=== PATIENT | male | born 1955 | race Caucasian/White ===

== ENCOUNTER 2017-02-26 03:23 | Emergency (ER) | payer OTHER ==
[2017-02-26] MEDS ORDERED: HYDROmorphone* 1 MG/ML 1 ML SYR IM ONE (03:42)
[2017-02-26] MEDS ORDERED: oxyCODONE/Acetamin 5/325 MG* TAB PO ONE (04:57)
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
[2017-02-26 05:20] VITALS: BP 143/87
== END 2017-02-26 05:20 | disposition home or self-care (01) ==
LOC: ED 03:23
DX: M54.2 Cervicalgia (principal); M25.512 Pain in left shoulder; M25.511 Pain in right shoulder
CPT/HCPCS: 96372; 99281; A9270-GY; J1170

== ENCOUNTER 2017-02-26 10:19 | Emergency (ER) | payer OTHER ==
[2017-02-26] MEDS ORDERED: Ketorolac INJ* 30 MG/ML 1 ML VIAL IV ONE (11:20)
[2017-02-26] MEDS ORDERED: Diazepam SYRINGE* 5 MG/ML SYRINGE IV ONE (11:20)
[2017-02-26] MEDS ORDERED: NS 0.9% 1000 ML* 1,000 ML IV ONE (11:20)
[2017-02-26] MEDS ORDERED: Diazepam TAB(*) 5 MG PO ONE (11:42)
[2017-02-26] MEDS ORDERED: Ketorolac INJ* 60 MG/2 ML VIAL IM ONE (11:43)
[2017-02-26] MEDS ORDERED: HYDROmorphone TAB* 2 MG PO ONE (12:02)
[2017-02-26 12:54] LABS: Hematocrit 44 % (42-52); Hemoglobin 15.5 g/dl (14.0-18.0); Mean Corpuscular HGB Conc 35 g/dl (31-36); Mean Corpuscular Hemoglobin 30 pg (27-31); Mean Corpuscular Volume 86 fL (80-94); Mean Platelet Volume 8 um3 (7.4-10.4); Red Blood Count 5.11 10^6/ul (4.0-5.4); Red Cell Distribution Width 13 % (10.5-15); White Blood Count 8.2 10^3/ul (3.5-10.8)
[2017-02-26 13:10] LABS: Albumin 4.1 g/dL (3.2-5.2); BUN/Creatinine Ratio 16.7 (8-20); C Reactive Protein 4.39 mg/L (< 5.00); Calcium 9.5 mg/dL (8.6-10.3); EGFR African American 94.9 (>60); EGFR Non-African American 73.8 (>60); Globulin 2.9 g/dL (2-4); Potassium 3.2 mmol/L (3.5-5.0)
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
[2017-02-26] MEDS ORDERED: Iohexol 350* (CONTRAST) 500 ML MDV IV ONE (13:30)
--- NOTE | 2017-02-26 15:23 | RAD ---
CPT II: CPT II Codes: 3100F INDICATION: Exacerbation of neck, shoulder and arm pain x2 days. COMPARISON: Most recent comparison imaging includes MRI of the cervical spine dated March 27, 2016 TECHNIQUE: A CT angiogram of the head and neck was performed with 80 cc of Omnipaque 350. Contiguous axial sections were obtained from the thoracic inlet through the [place]. Images were reconstructed in the sagittal, coronal planes and in a 3-D volume rendered format. The distal cervical internal carotid artery diameter is used as the denominater for stenosis measurement. CTA NECK: The common and internal carotid arteries are patent without hemodynamically significant stenosis. Right: The carotid bulb measures approximately 8 cm in short axis diameter and just beyond the bifurcation the right internal carotid artery also measures 8 mm in short axis diameter indicating a 0% degree stenosis. Left: At the carotid bulb the short axis diameter measures 8 mm and beyond the bifurcation the left internal carotid artery exhibits a minimal diameter of 4 mm yielding a 50% degree stenosis at the proximal most portion of the left internal carotid artery. The right vertebral artery is patent without gross abnormality. The left vertebral artery at the cervical level is diminutive relative to the right. After exiting the transverse foramen the vertebral artery becomes extremely narrow and exhibits occlusion of the lumen after its entry point at the foramen magnum. The left vertebral artery fills by reconstituted flow (image 166 of 231 provided by the posterior inferior cerebellar artery before joining the much larger right vertebral artery to form the basilar artery. The esophagus is partially fluid-filled. CTA of the brain: The internal carotid, anterior and middle cerebral arteries appear are patent without high grade stenosis or occlusion. The vertebral, basilar and posterior cerebral arteries appear patent without high grade stenosis or occlusion. The [place] is complete with bilateral posterior communicating arteries identified. No focal luminal filling defect, aneurysm or vascular malformation is seen. IMPRESSION: 1. According to the nascet criteria there is approximately 50% degree stenosis at the left internal carotid artery. 2. The left vertebral artery is diminutive relative to the right at the cervical level and appears to become totally occluded after entering the foramen magnum, filling more distally with collateralized flow provided by the posterior inferior cerebellar artery. 3. Incidentally noted is a partially fluid-filled esophagus. Please correlate to signs or symptoms of gastroesophageal reflux disease.
[2017-02-26] MEDS ORDERED: HYDROmorphone* 1 MG/ML 1 ML SYR IV SLOW PU ONE (15:27)
[2017-02-26 17:05] VITALS: BP 181/97
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
== END 2017-02-26 17:03 | disposition home or self-care (01) ==
LOC: ED 10:19
DX: M54.2 Cervicalgia (principal); G89.29 Other chronic pain; I10 Essential (primary) hypertension; Z79.52 Long term (current) use of systemic steroids; V89.2XXS Person injured in unspecified motor-vehicle accident, traffic, sequela
CPT/HCPCS: 36415; 70498; 80053; 85025; 86140; 96360; 96372; 96374; 96375; 99283; A9270-GY; J1170; J1885; Q9967

== ENCOUNTER 2017-02-27 08:13 | Emergency (ER) | payer OTHER ==
[2017-02-27] MEDS ORDERED: HYDROmorphone TAB* 2 MG PO ONE ×2 (08:54→12:53)
[2017-02-27] MEDS ORDERED: HYDROmorphone* 2 MG/ML 1 ML SYR IM ONE (10:18)
[2017-02-27] MEDS ORDERED: Aspirin Low Dose CHEW TAB* 81 MG PO ONE ×2 (10:37→11:46)
--- NOTE | 2017-02-27 11:26 | RAD ---
Indication: Headache and neck pain. Chest pain. Comparison: April 15, 2016 CT abdomen. December 23, 2011 chest radiograph. Technique: Upright AP 1048 hours Report: Mild blunting of the LEFT costophrenic angle similar to the April 15, 2016 CT where it appears to subpleural fat and pleural parenchymal scarring. No suspicious focal pulmonary lesions. Negative for pneumothorax. Negative for cardiomegaly. Unremarkable central pulmonary vasculature. RIGHT epicardial fat pad noted. Unremarkable osseous structures in the AP projection. IMPRESSION: No evidence for acute intrathoracic disease.
[2017-02-27 11:28] LABS: Hematocrit 49 % (42-52); Hemoglobin 16.8 g/dl (14.0-18.0); Mean Corpuscular HGB Conc 35 g/dl (31-36); Mean Corpuscular Hemoglobin 30 pg (27-31); Mean Corpuscular Volume 86 fL (80-94); Mean Platelet Volume 8 um3 (7.4-10.4); Red Blood Count 5.66 10^6/ul (4.0-5.4); Red Cell Distribution Width 13 % (10.5-15)
[2017-02-27] MEDS ORDERED: Aspirin Low Dose CHEW TAB* 81 MG ONE (11:33)
[2017-02-27 11:45] LABS: Albumin 4.4 g/dL (3.2-5.2); BUN/Creatinine Ratio 23.7 (8-20); Calcium 9.9 mg/dL (8.6-10.3); EGFR African American 100.5 (>60); EGFR Non-African American 78.2 (>60); Globulin 3.1 g/dL (2-4); Potassium 3.5 mmol/L (3.5-5.0); Total Bilirubin 1.2 mg/dL (0.2-1.0); Total Protein 7.5 g/dL (6.4-8.9)
[2017-02-27 11:46] LABS: Troponin I 0.03 ng/mL (<0.04)
[2017-02-27] MEDS ORDERED: ALPRAZolam TAB* 0.5 MG PO ONE (12:02)
[2017-02-27 12:53] LABS: C Reactive Protein 10.24 mg/L (< 5.00)
[2017-02-27 13:30] LABS: Erythrocyte Sed Rate 14 mm/Hr (0-20)
[2017-02-27 13:38] VITALS: BP 175/101
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
== END 2017-02-27 13:35 | disposition left against medical advice (07) ==
LOC: ED 08:13
DX: M25.512 Pain in left shoulder (principal); R07.9 Chest pain, unspecified; M54.2 Cervicalgia; Z53.21 Procedure and treatment not carried out due to patient leaving prior to being seen by health care provider
CPT/HCPCS: 36415; 71010; 80053; 83605; 84484; 85025; 85652; 86140; 93005; 96374; 99284; A9270-GY; J1170

== ENCOUNTER 2017-02-27 16:00 | Observation (INO) | payer OTHER ==
[2017-02-27 18:39] LABS: Hematocrit 47 % (42-52); Hemoglobin 16.3 g/dl (14.0-18.0); Mean Corpuscular HGB Conc 35 g/dl (31-36); Mean Corpuscular Hemoglobin 30 pg (27-31); Mean Corpuscular Volume 86 fL (80-94); Mean Platelet Volume 8 um3 (7.4-10.4); Red Blood Count 5.48 10^6/ul (4.0-5.4); Red Cell Distribution Width 13 % (10.5-15); White Blood Count 11.3 10^3/ul (3.5-10.8)
[2017-02-27 18:55] LABS: Albumin 4.2 g/dL (3.2-5.2); BUN/Creatinine Ratio 22.3 (8-20); Calcium 9.7 mg/dL (8.6-10.3); EGFR African American 85.2 (>60); EGFR Non-African American 66.2 (>60); Globulin 3.1 g/dL (2-4); Potassium 3.2 mmol/L (3.5-5.0); Total Bilirubin 1.1 mg/dL (0.2-1.0); Total Protein 7.3 g/dL (6.4-8.9)
[2017-02-27 19:07] LABS: Troponin I 0.05 ng/mL (<0.04)
[2017-02-27] MEDS ORDERED: Ondansetron INJ* 2 MG/ML VIAL IV ONE (19:23)
[2017-02-27] MEDS ORDERED: HYDROmorphone* 1 MG/ML 1 ML SYR IV ONE (19:23)
[2017-02-27] MEDS ORDERED: LORazepam INJ* 2 MG/ML 1 ML VIAL IV ONE (19:23)
[2017-02-27] MEDS ORDERED: Iohexol 350* (CONTRAST) 500 ML MDV IV ONE (19:33)
--- NOTE | 2017-02-27 20:15 | RAD ---
INDICATION: Chest pain. COMPARISON: Comparison is made with a prior CT of the abdomen and pelvis from July 07, 2012. TECHNIQUE: A CT angiogram of the chest, abdomen and pelvis was performed with intravenous contrast following intravenous injection of 100 ml of Omnipaque 350 nonionic contrast. Contiguous axial sections were obtained from the lung apices through the symphysis pubis. Images were reconstructed in the coronal and sagittal planes and in a 3-D volume rendered reformatted. FINDINGS: CT ANGIOGRAM OF THE CHEST: There is relatively homogeneous opacification of the pulmonary arteries. No intraluminal filling defect or pulmonary embolism is seen. The heart is within normal limits in size. No pericardial effusion is present. The thoracic aorta is normal in caliber and demonstrates homogeneous contrast opacification without evidence for dissection. There is a 0.8 cm right peritracheal lymph node. No significant enlarged mediastinal or hilar lymph nodes are seen by size criteria. The esophagus is diffusely distended throughout the thorax to the level of the gastroesophageal junction. There is elevation of the left hemidiaphragm and a small infiltrate at the left lung base suggestive of atelectasis. The lungs are otherwise clear. No pleural effusion is seen. CT ANGIOGRAM OF THE ABDOMEN AND PELVIS: The abdominal aorta is normal in caliber without hemodynamically significant stenosis. There is mild calcific and soft plaque present. The celiac axis, superior and inferior mesenteric arteries appear patent without evidence for hemodynamically significant stenosis. There are single bilateral renal arteries without hemodynamically significant stenosis. There is a retroaortic left renal vein. The liver is normal in size. There are multiple cysts present throughout the liver. The largest is located in the inferior portion of the right hepatic lobe and measures up to 6.0 cm in size and appears mildly complex with mild increased density relative to to the prior study. This has decreased in size from the prior exam. No calcified gallstones are seen. No intra or extrahepatic ductal distention is noted. The spleen is normal in size. The pancreas appears within normal limits. The kidneys and adrenal glands are normal in size. No hydronephrosis is seen. No significant focal renal abnormality is seen. No significant enlarged retroperitoneal lymph nodes are seen. The stomach is mildly distended and fluid-filled. The small bowel colon appear nondistended. The appendix appears to be within normal limits. There is mild descending and sigmoid diverticulosis without evidence for diverticulitis. There is a small periumbilical hernia containing fat. In addition there is a right inguinal hernia containing fat. No free intraperitoneal air or fluid is seen. No significant focal osseous abnormality is seen. IMPRESSION: 1. NO EVIDENCE FOR PULMONARY EMBOLISM OR AORTIC DISSECTION. 2. DIFFUSE DISTENTION OF THE ESOPHAGUS TO THE LEVEL OF THE GASTROESOPHAGEAL JUNCTION. RECOMMEND ENDOSCOPY FOR FURTHER EVALUATION. 3. MULTIPLE SIMPLE AND COMPLEX HEPATIC CYSTS. 4.. PERIUMBILICAL AND RIGHT INGUINAL HERNIAS CONTAINING FAT.
[2017-02-27] MEDS ORDERED: Albuterol 2.5 MG/3 ML NEB.SOL* (0.083%) INH PRN (21:48)
[2017-02-27] MEDS ORDERED: Acetaminophen TAB* 325 MG PO PRN (21:48)
[2017-02-27] MEDS ORDERED: CMCS: Melatonin (NF) 3 MG TAB PO PRN (21:48)
[2017-02-27] MEDS ORDERED: HYDROmorphone* 1 MG/ML 1 ML SYR IV PRN (21:48)
[2017-02-27] MEDS ORDERED: Ketorolac INJ* 15 MG/ML 1 ML VIAL IV PRN (21:48)
[2017-02-27] MEDS ORDERED: Ondansetron INJ* 2 MG/ML VIAL IV PRN (21:54)
[2017-02-27] MEDS ORDERED: methylPREDNISolone SOD SUCC* 125 MG 2 ML VIAL IV ONE (21:54)
[2017-02-27] MEDS ORDERED: traMADol TAB* 50 MG PO PRN (21:54)
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
[2017-02-27] MEDS: Potassium Chlor TAB* 20 MEQ TAB.ER PO SCH (22:43)
[2017-02-27] MEDS: Metoprolol Succinate XL TAB* 25 MG PO SCH (22:52)
[2017-02-27] MEDS: Baclofen TAB* 10 MG PO SCH (22:52)
[2017-02-28] MEDS: Potassium Chlor TAB* 20 MEQ TAB.ER PO SCH (03:00)
[2017-02-28] MEDS: NS 0.9% 1000 ML* 1,000 ML IV SCH ×2 (05:11→07:14)
[2017-02-28] MEDS: Heparin VIAL(*) 5000 UNITS/ML VIAL (FIVE THOUSAND) SUBCUT SCH ×2 (05:11→13:42)
[2017-02-28] MEDS ORDERED: Omeprazole CAP* 20 MG PO SCH (06:00)
[2017-02-28 07:31] LABS: Hematocrit 46 % (42-52); Hemoglobin 15.8 g/dl (14.0-18.0); Mean Corpuscular HGB Conc 34 g/dl (31-36); Mean Corpuscular Hemoglobin 30 pg (27-31); Mean Corpuscular Volume 87 fL (80-94); Mean Platelet Volume 8 um3 (7.4-10.4); Red Blood Count 5.31 10^6/ul (4.0-5.4); Red Cell Distribution Width 13 % (10.5-15); White Blood Count 11.7 10^3/ul (3.5-10.8)
[2017-02-28 07:44] LABS: BUN/Creatinine Ratio 26.8 (8-20); Calcium 9.5 mg/dL (8.6-10.3); EGFR African American 100.5 (>60); EGFR Non-African American 78.2 (>60); Potassium 4.4 mmol/L (3.5-5.0)
[2017-02-28 07:48] LABS: Troponin I 0.02 ng/mL (<0.04)
[2017-02-28] MEDS: Baclofen TAB* 10 MG PO SCH ×2 (08:37→13:40)
[2017-02-28] MEDS: Metoprolol Succinate XL TAB* 25 MG PO SCH (08:38)
[2017-02-28] MEDS ORDERED: Docusate CAP* 100 MG PO SCH (09:00)
[2017-02-28 12:28] VITALS: BP 166/105
[2017-02-28 12:57] LABS: HDL Cholesterol 39.6 mg/dL
--- NOTE | 2017-03-01 08:00 | DS ---
DISCHARGE SUMMARY: DATE OF ADMISSION: 02/27/17 DATE OF DISCHARGE: 02/28/17. PRIMARY CARE PHYSICIAN: Mt Ricardo NP ADMISSION DIAGNOSIS: Chest pain. SECONDARY DIAGNOSES: 1. Hypertension. 2. History of cerebrovascular accident. 3. Posttraumatic stress disorder. 4. Chronic cervicalgia. 5. Left vertebral artery occlusion. 6. Migraines. DISCHARGE DIAGNOSES: 1. Hypertension. 2. History of cerebrovascular accident. 3. Posttraumatic stress disorder. 4. Chronic cervicalgia. 5. Left vertebral artery occlusion. 6. Migraines. HOSPITAL COURSE: A 61-year-old gentleman who presented to [facility] with a chief complaint of chest pain. Please see H and P for further details. He said you could actually see it on his chest he felt when looking at it and it got worse when he pressed on it. The patient was admitted and initially had some borderline troponins at 0.05 that went down to 0.02. The patient was pain-free when seen in the morning. His EKG showed normal sinus rhythm at 95 beats per minute. He has Qs in 3 and F but no acute ST-T wave changes. His EKG looked similar this morning. The pain was reproducible. His EKG was unremarkable for acute changes. His troponins did not bump. It was felt he would go home safely and follow up with his PCP as well as have a stress test as an outpatient, which we ordered for him. He should return to the ED if symptoms recur. PHYSICAL EXAMINATION ON DATE OF DISCHARGE: Vital Signs: Temperature 98.2 degrees, heart rate 85 beats per minute, respiratory rate 16 breaths per minute , pulse ox 92%, blood pressure 166/105. HEENT: Normocephalic, atraumatic. Pupils equal, round, and react to light. Moist mucous membranes. Neck: Supple. No JVD, bruits, palpable thyroid, or lymphadenopathy. Chest: Clear to auscultation and percussion bilaterally. Cardiovascular: S1, S2 appreciated. Regular rate and rhythm. Abdominal Exam: Positive bowel sounds in all 4 quadrants. Soft, nontender, nondistended. No hepatosplenomegaly. Extremities : No cyanosis, clubbing, or edema. +2 peripheral pulses bilaterally. Neuro: Alert and oriented x3. Moves all extremities. Skin: No rashes or abnormalities. STUDIES DONE WHILE IN THE HOSPITAL: CTA of the chest, abdomen, and pelvis shows no evidence for pulmonary embolism or aortic dissection, diffuse distention is obvious to level of the GE junction. Recommend endoscopy for further evaluation. Multiple simple and complex hepatic cysts. Periumbilical and right inguinal hernia containing fat. DISCHARGE MEDICATIONS: 1. Dilaudid 2 mg every 8 hours as needed for pain. 2. Lisinopril 10 mg p.o. daily as needed. 3. Baclofen 10 mg 4 times a day as needed. This is new. DISCHARGE PLAN: The patient will be discharged home. He is to have a followup stress test, which we have ordered for him. He will get a chemical nuclear stress test. We have added lisinopril because of his high blood pressure and he was told to follow up with his PCP for blood pressure check and have his blood work checked as well. The patient should also get a followup concerning the findings on the CT scan regarding the distention of the esophagus, which may also be the reason for his initial discomfort. TIME SPENT: Over 40 minutes were spent on this discharge, more than 25 minutes of which were spent in direct [id number] contact with the patient in evaluation, physical exam, counseling, and coordination of care. CC: Mt Ricardo NP * [id number]/[facility] #: [id number] JEANIE
== END 2017-02-28 15:55 | disposition home or self-care (01) ==
LOC: ED 16:00 → MEDTELE 20:50
PROVIDERS: ADMIT Hospitalist; ATTEND Internal Medicine
DX: R07.9 Chest pain, unspecified (principal); I10 Essential (primary) hypertension; Z86.73 Personal history of transient ischemic attack (TIA), and cerebral infarction without residual deficits; F43.10 Post-traumatic stress disorder, unspecified; M54.2 Cervicalgia; G89.29 Other chronic pain; I65.02 Occlusion and stenosis of left vertebral artery; G40.909 Epilepsy, unspecified, not intractable, without status epilepticus; R94.31 Abnormal electrocardiogram [ECG] [EKG]; Z79.899 Other long term (current) drug therapy
CPT/HCPCS: 36415; 71275; 74174; 80048; 80053; 80061; 83605; 84484; 85025; 85027; 93005; 96374; 96375; 99285; A9270-GY; J1170; J1644; J1885; J2060; J2405; J2930; Q9967

== ENCOUNTER 2018-09-09 10:54 | Emergency (ER) | payer MEDICARE, OTHER ==
[2018-09-09 11:42] LABS: ABS Basophils 0 10^3/ul (0-0.2); ABS Eosinophils 0 10^3/ul (0-0.6); ABS Lymphocytes 0.6 10^3/ul (1.0-4.8); ABS Monocytes 0.3 10^3/ul (0-0.8); ABS Neutrophils 7.5 10^3/ul (1.5-7.7); ABS Nucleated RBC 0 10^3/ul; Eosinophil % 0.2 % (0-6); Hematocrit 45 % (42-52); Hemoglobin 15.7 g/dl (14.0-18.0); Lymphocyte % 7.4 % (25-47); Mean Corpuscular HGB Conc 35 g/dl (31-36); Mean Corpuscular Hemoglobin 30 pg (27-31); Mean Corpuscular Volume 87 fL (80-94); Mean Platelet Volume 8.3 fL (7.4-10.4); Nucleated Red Blood Cells % 0.1; Platelet Count 196 10^3/ul (150-450); Red Blood Count 5.18 10^6/ul (4.00-5.40); Red Cell Distribution Width 13 % (10.5-15); White Blood Count 8.5 10^3/ul (3.5-10.8)
[2018-09-09 12:01] LABS: EGFR Non-African American 55.6 (>60)
[2018-09-09] MEDS ORDERED: Ketorolac INJ* 30 MG/ML 1 ML VIAL IV PUSH ONE (12:05)
[2018-09-09] MEDS ORDERED: NS 0.9% 1000 ML* 1,000 ML IV ONE (12:05)
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
[2018-09-09] MEDS ORDERED: Ibuprofen TAB* 600 MG PO ONE (12:38)
[2018-09-09] MEDS ORDERED: Sulfamethox/Trimethoprim DS 800/160* TAB PO ONE (13:01)
[2018-09-09] MEDS ORDERED: Tamsulosin CAP* 0.4 MG PO ONE (13:01)
[2018-09-09 13:44] LABS: Urine Appearance Clear; Urine Blood 3+ (Negative); Urine Color Yellow; Urine Ketones 1+ (Negative); Urine Protein 1+(30 mg/dL) (Negative); Urine Red Blood Cell 3+(>10/hpf) (Absent); Urine Specific Gravity 1.016 (1.010-1.030); Urine Urobilinogen Negative (Negative); Urine White Blood Cell Trace(0-5/hpf) (Absent)
[2018-09-09 14:53] VITALS: BP 159/101
== END 2018-09-09 15:16 | disposition home or self-care (01) ==
LOC: ED 10:54
DX: N20.1 Calculus of ureter (principal); I10 Essential (primary) hypertension; J45.909 Unspecified asthma, uncomplicated; Z87.442 Personal history of urinary calculi; R20.0 Anesthesia of skin; R25.3 Fasciculation; V89.2XXS Person injured in unspecified motor-vehicle accident, traffic, sequela
CPT/HCPCS: 36415; 71045; 74176; 80053; 81003; 81015; 83605; 84484; 85025; 87086; 93005; 99283; A9270-GY